=== PATIENT | female | born 1965 | race Caucasian/White ===

== ENCOUNTER → 2016-11-01 | Outpatient (CLI) | payer BC ==
--- NOTE | 2016-11-01 15:27 | US ---
EXAMINATION TYPE: US pelvic complete DATE OF EXAM: 11/01/2016 COMPARISON: NONE CLINICAL HISTORY: R10.9 abd/pelv pain. JOSUÉ with single ovary removed, gen pelvic pain TECHNIQUE: Transabdominal (TA) Date of LMP: over 20 yrs ago EXAM MEASUREMENTS: Uterus: Surgically absent Right Ovary: 3.0 x 1.6 x 2.8 cm Left Ovary: Surgically absent 1. Uterus: surgically absent; vag cuff wnl 2. Endometrium: surgically absent 3. Right Ovary: wnl 4. Left Ovary: surgically absent 5. Bilateral Adnexa: wnl 6. Posterior cul-de-sac: no free fluid seen Urinary bladder is sonolucent. Posterior wall is normal. IMPRESSION: 1. Normal postsurgical pelvic ultrasound
--- NOTE | 2016-11-01 15:28 | US ---
EXAMINATION TYPE: US abdomen complete DATE OF EXAM: 11/01/2016 COMPARISON: NONE CLINICAL HISTORY: R10.9 ABD/PELVIC PAIN. EXAM MEASUREMENTS: Liver Length: 16.0 cm Gallbladder Wall: 0.2 CBD: 0.3 cm Spleen: 10.0 cm Right Kidney: 9.8 x 4.3 x 5.6 cm Left Kidney: 10.9 x 5.9 x 5.3 cm Pancreas: tail gassed out, visualized portions wnl Liver: wnl Gallbladder: wnl Evidence for sonographic Jules's sign: no CBD: wnl Spleen: wnl Right Kidney: wnl Left Kidney: wnl Upper IVC: wnl Abd Aorta: wnl IMPRESSION: 1. Normal abdomen ultrasound
== END | disposition home or self-care (01) ==
LOC: RADUSWWP 14:14
PROVIDERS: ATTEND Internal Medicine
DX: R10.9 Unspecified abdominal pain (principal); R11.0 Nausea; R10.2 Pelvic and perineal pain
CPT/HCPCS: 76700; 76856

== ENCOUNTER → 2018-10-08 | Outpatient (CLI) | payer BC ==
--- NOTE | 2018-10-08 16:01 | CT ---
EXAMINATION TYPE: CT cervical spine wo con DATE OF EXAM: 10/08/2018 COMPARISON: CT soft tissue neck 09/12/2014 HISTORY: Neck pain and bilateral arm numbness. CT DLP: 354.1 mGycm Contrast: None CT of the cervical spine is performed in the axial plane at 2 mm thick sections. Reconstructed image s in the coronal, and sagittal plane are reviewed on the computer. No acute fractures are evident. There is straightening of the cervical spine in sagittal plane. Disc heights are preserved. Vertebral body heights are preserved. No spinal canal stenosis is evident. Endplate spurring is noted however C5-6 C6-7. No neural foraminal stenosis is evident. IMPRESSIONS: 1. Mild endplate spurring C5-6 C6-7 without stenosis.
== END | disposition home or self-care (01) ==
LOC: RADCTMAIN 15:38
PROVIDERS: ATTEND Family Medicine
DX: M25.78 Osteophyte, vertebrae (principal)
CPT/HCPCS: 72125

== ENCOUNTER 2024-01-20 11:43 | Day surgery (SDC) | payer BC ==
[2024-01-15 10:35] VITALS: BMI 22.7
[2024-01-20] MEDS: IV FLUID CONTINUATION 1,000 ML IV ONE (12:13)
[2024-01-20] MEDS: SODIUM CHLORIDE 0.9% 1,000 ML IV SCH (12:13)
[2024-01-20 12:26] LABS: Basophils % (A) 0 %; Eosinophils # (A) 0.2 k/uL (0-0.7); Eosinophils % (A) 2 %; HGB 12.9 gm/dL (11.4-16.0); Lymphocytes # (A) 2.3 k/uL (1.0-4.8); Lymphocytes % (A) 33 %; MCH 31.7 pg (25.0-35.0); MCV 96.1 fL (80.0-100.0); Mean Platelet Volume 8.5; Monocytes # (A) 0.6 k/uL (0-1.0); Monocytes % (A) 8 %; Neutrophils # (A) 3.6 k/uL (1.3-7.7); Neutrophils % (A) 53 %; Platelet Count 288 k/uL (150-450); RBC 4.07 m/uL (3.80-5.40); RDW 13.8 % (11.5-15.5); WBC 6.8 k/uL (3.8-10.6)
[2024-01-20 12:31] LABS: African American GFR (CKD) >90 (>60 ml/min/1.73 sqM); Anion Gap 7 mmol/L; Blood Urea Nitrogen 21 mg/dL (7-17); Calcium 9.4 mg/dL (8.4-10.2); Carbon Dioxide 27 mmol/L (22-30); Chloride 105 mmol/L (98-107); Glucose 91 mg/dL (74-99); Non-African American GFR(CKD) >90 (>60 ml/min/1.73 sqM); Potassium 3.8 mmol/L (3.5-5.1); Sodium 139 mmol/L (137-145)
[2024-01-20] MEDS ORDERED: fentaNYL (PF) 50 MCG/ML 2 ML AMP ONE (15:49)
[2024-01-20] MEDS ORDERED: MIDAZOLAM 2 MG/2 ML VIAL ONE (15:49)
[2024-01-20] MEDS ORDERED: diphenhydrAMINE 50 MG/ML 1 ML VIAL ONE (15:49)
[2024-01-20] MEDS ORDERED: PROPOFOL 10 MG/ML 20 ML VIAL IV ONE (15:49)
[2024-01-20] MEDS: ceFAZolin 1 GM in SODIUM CHLORIDE 0.9% IRRIG BTL 250 ML IRRIGATION PRN (15:56)
[2024-01-20] MEDS ORDERED: LIDOCAINE 1% INJ 10MG/ML (20 ML MDV) ONE (16:07)
[2024-01-20] MEDS: ROPIVACAINE 5MG/ML 20ML VIAL MISCELLANE ONE (16:23)
[2024-01-20] MEDS: LIDOCAINE 1% INJ 10MG/ML (20 ML MDV) SQ ONE (16:23)
--- NOTE | 2024-01-20 17:21 | P.EPPROC ---
- EP Procedure Note Electrophysiology Procedure Note: Diagnosis Dual-chamber ICD implanted several years back for sustained VT, secondary prevention Dual-chamber ICD at [facility] Procedure: Dual-chamber ICD generator change, successful Result: Dual chamber ICD generator change Atrial lead: [employer] model #4472 P waves 2.1 mV pacing impedance 399 ohms and pacing threshold 0.5 V at 0.4 ms RV ICD lead: [employer] model #0184 R waves 8.9 mV, pacing impedance 418 ohms, high-voltage impedance 43 ohms, pacing threshold 1 V at 0.4 ms Procedure details: Patient was brought to the EP lab in a fasting state. Written informed consent was obtained prior to the procedure. Options, pros and cons, benefits and risks and complications discussed with patient in detail prior to the procedure (shared decision making). Importance of continuing medical treatment emphasized. Alternatives discussed. Patient would like to proceed with dual-chamber ICD implant. Cinefluoroscopy revealed a dual-chamber system, dual coil ICD lead no fractures or breaks noted Old [employer] generator explanted New [employer] dual-chamber ICD, DF [address] [place] [address] MRI DF 1 Pocket irrigated with antibiotic solution. Antibiotic pouch placed. Generator secured to the underlying pectoralis muscle Wound closed in 3 layers and dressed per protocol Defibrillation level testing Ventricular fibrillation was induced with a shock and T wave protocol. Appropriately detected and defibrillated with a 14 J shock Charge time 2.6 seconds, shock impedance 45 ohms Dual ICD interrogated and programmed. Appropriate pacing parameters, antitachycardia therapies with antitachycardia pacing cardioversion defibrillations programmed. First defibrillation at 21 J Monitor zone programmed with 50 beats, 150 bpm VF zone 200 beats a minute. Appropriate antitachycardia pacing programmed Patient tolerated the procedure well without any acute complications. See scanned device report in EMR for lead details
[2024-01-20 18:26] VITALS: TEMP 97.6
[2024-01-20 18:43] VITALS: RESP 16
[2024-01-20] MEDS: ACETAMINOPHEN IV (For NPO) 1,000 MG in EMPTY BAG 1 BAG IVPB ONE (18:47)
[2024-01-20] MEDS: VANCOMYCIN 1,000 MG in SODIUM CHLORIDE 0.9% 250 ML IVPB ONE (18:47)
[2024-01-20 18:58] VITALS: BP 104/61; PULSE 53
[2024-01-20] MEDS: ACETAMINOPHEN TAB 325 MG TAB PO PRN (19:32)
== END 2024-01-20 19:58 | disposition home or self-care (01) ==
LOC: CATHEP 11:43 → 6NMEDSUR 16:58 → CATHEP 19:58
PROVIDERS: ATTEND Internal Medicine Clinical Cardiac Electrophysiology
DX: I42.9 Cardiomyopathy, unspecified
CPT/HCPCS: 33263; 80048; 85025